=== PATIENT | female | born 1985 | race African-American/Black ===

== ENCOUNTER 2017-01-30 17:42 | Emergency (ER) | payer MEDICAID ==
[~2017-01-30] VITALS: Ht 170.2 cm; Wt 100.0 kg
[~2017-01-30 17:42] MED LIST: PREN0.01 PO; ZOFR4TAB3 SL
[2017-01-30 17:44] VITALS: BP 138/89; PULSE 98; RESP 20; TEMP 97.7; O2SAT 100
[2017-01-30] MEDS ORDERED: SODIUM CHLOR 0.9% 1000 ML INJ 1,000 ML IV SCH (18:04)
[2017-01-30] MEDS ORDERED: KETOROLAC TROMETHAMINE 30 MG/ML (IVP) VIAL IVP ONE (18:15)
[2017-01-30] MEDS ORDERED: ONDANSETRON HCL 4 MG/2 ML VIAL IVP ONE (18:15)
[2017-01-30 18:25] LABS: BLOOD, URINE SMALL (NEG); COMMENT (UR) CULT NOT INDICATED; CULTURE IF INDICATED CULT NOT INDICATED; GLUCOSE,URINE NEG (NEG); KETONE, URINE NEG (NEG); MUCUS URINE FEW /lpf (OCC); NITRITE,URINE NEG (NEG); PH, URINE 5.5 (5.0-8.5); SQUAMOUS EPITHELIAL CELL URINE 3 /hpf (0-5); URINE COLOR YELLOW (YELLW/STRAW)
[2017-01-30 18:36] LABS: ALT (GPT) 18 U/L (10-53); ANION GAP 7 MEQ/L (5-15); AST (GOT) 14 U/L (15-37); BICARBONATE 28.6 MEQ/L (21.0-32.0); BLOOD UREA NITROGEN 11 MG/DL (7-18); CHLORIDE 103 MEQ/L (98-107); GLOMERULAR FILTRATION RATE 107 ML/MIN (>89); POTASSIUM 3.5 MEQ/L (3.5-5.1); SODIUM (NA) 139 MEQ/L (136-145)
[2017-01-30 18:39] LABS: ALKALINE PHOSPHATASE 131 U/L (45-117); AUTOMATED NEUTROPHIL # 5.4 TH/MM3 (1.8-7.7); BASOPHIL # 0.1 TH/MM3 (0-0.2); BASOPHIL % 0.8 % (0.0-2.0); EOSINOPHIL # 0.2 TH/MM3 (0-0.4); EOSINOPHIL % 1.8 % (0.0-4.0); HEMO FLAGS DIFF FINAL; LYMPH % 34.3 % (9.0-44.0); LYMPHOCYTE # 3.4 TH/MM3 (1.0-4.8); MEAN CELL VOLUME 74.3 FL (80.0-100.0); MEAN CORPUSCULAR HEMOGLOBIN 23.7 PG (27.0-34.0); MEAN CORPUSCULAR HGB CONC 31.9 % (32.0-36.0); MONO % 8.9 % (0.0-8.0); NEUT % 54.2 % (16.0-70.0); PLATELET COUNT 251 TH/MM3 (150-450); RED BLOOD COUNT 4.97 MIL/MM3 (4.00-5.30); TOTAL BILIRUBIN ADULT 0.2 MG/DL (0.2-1.0); WHITE BLOOD COUNT 9.9 TH/MM3 (4.0-11.0)
--- NOTE | 2017-01-30 19:31 | PD ---
HPI Chief Complaint: Abdominal Pain Time Seen by Provider: 19:29 Travel History International Travel<30 days: No Contact w/Intl Traveler<30days: No Traveled to known affect area: No History of Present Illness HPI 31-year-old female that presents to the ED for evaluation of generalized abdominal pain with nausea as well as diarrhea. Per patient she also has vaginal discharge. Per patient she's had this for a week. Nothing makes it better or worse. Per patient she denies . She denies any urinary symptoms. No history of surgeries to the abdomen. Has not taken anything over- the-counter. Comes here for evaluation of this. Per patient pain is 4 out of 10 and is cramping in nature. Most of the pain appears to be in the lower abdomen. She has no allergies to medication. No other medical issues reported. [facility] Past Medical History Medical History: Denies Significant Hx Diminished Hearing: No Genitourinary: Yes (HPV PID) ?: Not LMP: depo : 3 Para: 2 Miscarriage: 1 : 0 Past Surgical History Surgical History: No Previous Surgery Social History Alcohol Use: No Tobacco Use: No Substance Use: No Allergies-Medications (Allergen,Severity, Reaction): Coded Allergies: No Known Allergies (Verified , 01/30/17) Reported Meds & Prescriptions Reported Meds & Active Scripts Active No Active Prescriptions or Reported Medications Review of Systems Except as stated in HPI: all other systems reviewed are Neg Physical Exam Narrative GENERAL: SKIN: Warm and dry. HEAD: Atraumatic. Normocephalic. EYES: Pupils equal and round. No scleral icterus. No injection or drainage. ENT: No nasal bleeding or discharge. Mucous membranes pink and moist. Tongue is midline. No uvula deviation. NECK: Trachea midline. No JVD. CARDIOVASCULAR: Regular rate and rhythm. No murmurs, S3, S4. RESPIRATORY: No accessory muscle use. Clear to auscultation. Breath sounds equal bilaterally. GASTROINTESTINAL: Abdomen soft, non-tender, nondistended. Hepatic and splenic margins not palpable. MUSCULOSKELETAL: Extremities without clubbing, cyanosis, or edema. No obvious deformities. Full range of motion of the upper and lower extremities bilaterally. 2+ pulses bilaterally. NEUROLOGICAL: Awake and alert. No obvious cranial nerve deficits. Motor grossly within normal limits. Five out of 5 muscle strength in the arms and legs. Normal speech. PSYCHIATRIC: Appropriate mood and affect; insight and judgment normal. Data Data Last Documented VS Vital Signs Date Time Temp Pulse Resp B/P Pulse Ox O2 Delivery O2 Flow Rate FiO2 01/30/17 19:45 82 18 134/77 98 Room Air 01/30/17 17:44 97.7 Orders Ed Urine Pregnancytest Poc (01/30/17 17:47) Complete Blood Count With Diff (01/30/17 18:04) Comprehensive Metabolic Panel (01/30/17 18:04) Lipase (01/30/17 18:04) Urinalysis - C+S If Indicated (01/30/17 18:04) Wet Prep Profile (01/30/17 18:04) Gc And Chlamydia Pcr (01/30/17 18:04) Ondansetron Inj (Zofran Inj) (01/30/17 18:15) Sodium Chlor 0.9% 1000 Ml Inj (Ns 1000 M (01/30/17 18:04) Ketorolac Inj (Toradol Inj) (01/30/17 18:15) Metronidazole (Flagyl) (01/30/17 20:45) Labs Laboratory Tests Test 01/30/17 01/30/17 18:05 19:53 White Blood Count 9.9 TH/MM3 Red Blood Count 4.97 MIL/MM3 Hemoglobin 11.8 GM/DL Hematocrit 37.0 % Mean Corpuscular Volume 74.3 FL Mean Corpuscular Hemoglobin 23.7 PG Mean Corpuscular Hemoglobin 31.9 % Concent Red Cell Distribution Width 15.0 % Platelet Count 251 TH/MM3 Mean Platelet Volume 10.0 FL Neutrophils (%) (Auto) 54.2 % Lymphocytes (%) (Auto) 34.3 % Monocytes (%) (Auto) 8.9 % Eosinophils (%) (Auto) 1.8 % Basophils (%) (Auto) 0.8 % Neutrophils # (Auto) 5.4 TH/MM3 Lymphocytes # (Auto) 3.4 TH/MM3 Monocytes # (Auto) 0.9 TH/MM3 Eosinophils # (Auto) 0.2 TH/MM3 Basophils # (Auto) 0.1 TH/MM3 CBC Comment DIFF FINAL Differential Comment Urine Color YELLOW Urine Turbidity CLEAR Urine pH 5.5 Urine Specific [place] 1.031 Urine Protein TRACE mg/dL Urine Glucose (UA) NEG mg/dL Urine Ketones NEG mg/dL Urine Occult Blood SMALL Urine Nitrite NEG Urine Bilirubin NEG Urine Urobilinogen LESS THAN 2.0 MG/DL Urine Leukocyte Esterase NEG Urine RBC 2 /hpf Urine WBC 1 /hpf Urine Squamous Epithelial 3 /hpf Cells Urine Mucus FEW /lpf Microscopic Urinalysis Comment CULT NOT INDICATED Sodium Level 139 MEQ/L Potassium Level 3.5 MEQ/L Chloride Level 103 MEQ/L Carbon Dioxide Level 28.6 MEQ/L Anion Gap 7 MEQ/L Blood Urea Nitrogen 11 MG/DL Creatinine 0.76 MG/DL Estimat Glomerular Filtration 107 ML/MIN Rate Random Glucose 88 MG/DL Calcium Level 8.8 MG/DL Total Bilirubin 0.2 MG/DL Aspartate Amino Transf 14 U/L (AST/SGOT) Alanine Aminotransferase 18 U/L (ALT/SGPT) Alkaline Phosphatase 131 U/L Total Protein 8.6 GM/DL Albumin 3.9 GM/DL Lipase 105 U/L Clue Cells (Wet Prep) PRESENT Vaginal Trichomonas (Wet Prep) NONE SEEN Vaginal Yeast (Wet Prep) NONE SEEN MDM Medical Decision Making Medical Screen Exam Complete: Yes Emergency Medical Condition: Yes Medical Record Reviewed: Yes Interpretation(s) CBC & BMP Diagram 01/30/17 18:05 LFTs and UA negative. Urine negative. Wet prep was positive for clue cells Differential Diagnosis Abdominal pain versus pancreatitis versus gastroenteritis versus cholelithiasis versus vaginitis versus STD Narrative Course 31-year-old female that presents to the ED for evaluation of abdominal pain and vaginal discharge. Patient was properly examined and was found to have signs and symptoms of unclear etiology. At this time recommend labs and pelvic exam. Patient in agreement with this plan. Labs and pelvic showed positive for clue cells. At this time this appears to be bacterial vaginosis. Patient agrees with plan. Patient denies any STD exposure and she does not believe that she has an STD. At this time we'll treat for her bacterial vaginosis and will wait for results of gonorrhea and chlamydia lab results to treat if needed. Patient agrees with this plan. Patient was given a prescription for Flagyl and diclofenac sodium. No sex for 2 weeks. Follow with PCP. See ED worsening symptoms. Diagnosis Primary Impression: Bacterial vaginosis Patient Instructions: General Instructions Additional Instructions: Take medication as prescribed. Finish antibiotic until completion. It might change the color of urine to orange this is normal. Close follow with PCP. No sex for 2 weeks. See ED if worst. Med/Other Pt SpecificInfo: Prescription(s) given Scripts Diclofenac Sodium DR 75 Mg Tabdr75 Mg PO BID PRN (PAIN SCALE 1 TO 10) #20 TAB Ref 0 Prov:Louise Warner MD 01/30/17 Metronidazole 500 Mg [id number] Mg PO BID 7 Days Ref 0 Prov:Louise Warner MD 01/30/17 Disposition: 01 DISCHARGE HOME Condition: Stable Sanjeev Goodwin Jan 30, 2017 19:31
[2017-01-30 19:45] VITALS: BP 134/77; PULSE 82; RESP 18; O2SAT 98
[2017-01-30] MEDS ORDERED: METR500T10 PO (20:33)
[2017-01-30] MEDS ORDERED: DICL75TA PO (20:33)
[2017-01-30] MEDS ORDERED: metroNIDAZOLE 500 MG TAB PO ONE (20:45)
[2017-01-31 02:52] LABS: CHLAMYDIA PCR NOT DETECTED (NOT DETECT); NEISSERIA PCR NOT DETECTED (NOT DETECT)
== END 2017-01-30 21:11 | disposition home or self-care (01) ==
LOC: NEPE 17:42
DX: N76.0 Acute vaginitis (principal); R19.7 Diarrhea, unspecified
CPT/HCPCS: 80053; 81001; 83690; 84703; 85025; 87210; 87491; 87591; 96374; 96375; 99284; J1885; J2405; J7030